=== PATIENT | female | born 1965 | race Caucasian/White ===

== ENCOUNTER 2021-05-18 18:20 | Emergency (ER) | payer MEDICARE ==
[~2021-05-18] VITALS: Ht 154.9 cm; Wt 77.1 kg
== END 2021-05-18 22:00 | disposition home or self-care (01) ==
LOC: ER1 18:20
DX: U07.1 COVID-19 (principal); E11.9 Type 2 diabetes mellitus without complications; I50.9 Heart failure, unspecified; Z23 Encounter for immunization; Z90.49 Acquired absence of other specified parts of digestive tract
CPT/HCPCS: 99284; M0243